=== PATIENT | male | born 1935 | race Caucasian/White ===

== ENCOUNTER 2016-05-26 13:42 | Emergency (ER) | payer MEDICARE ==
[2016-05-27] MEDS ORDERED: TRAMADOL HCL50 MG PO (23:36)
[2016-05-27] MEDS ORDERED: FLOMAX 0.4 MG0.4 MG PO (23:36)
[2016-05-27] MEDS ORDERED: PERCOCET 5-3251 EACH PO (23:36)
[2016-05-27] MEDS ORDERED: DITROPAN 5 MG TA5 MG PO (23:37)
== END 2016-05-26 14:50 | disposition home or self-care (01) ==
LOC: ER1 13:42
DX: R33.9 Retention of urine, unspecified (principal); I10 Essential (primary) hypertension; Z79.82 Long term (current) use of aspirin; Z79.899 Other long term (current) drug therapy
CPT/HCPCS: 99283

== ENCOUNTER 2016-05-27 18:18 | Inpatient (IN) | payer MEDICARE ==
[~2016-05-27] VITALS: Ht 175.3 cm; Wt 84.8 kg
[2016-05-27 19:23] LABS: HEMOGLOBIN 12.2 gm/dl (14.0-17.5); RED BLOOD COUNT 4.18 M/UL (4.20-5.50); WHITE BLOOD COUNT 8.7 K/UL (4.5-11.0)
[2016-05-27] MEDS ORDERED: PERCOCET 5-3251 EACH PO (23:36)
[2016-05-27] MEDS ORDERED: TRAMADOL HCL50 MG PO (23:36)
[2016-05-27] MEDS ORDERED: FLOMAX 0.4 MG0.4 MG PO (23:36)
[2016-05-27] MEDS ORDERED: DITROPAN 5 MG TA5 MG PO (23:37)
[2016-05-28 06:19] LABS: HEMOGLOBIN 10.7 gm/dl (14.0-17.5); WHITE BLOOD COUNT 8.6 K/UL (4.5-11.0)
[2016-05-28 06:21] LABS: RED BLOOD COUNT 3.71 M/UL (4.20-5.50)
[2016-05-28 07:14] LABS: ACINETOBACTER BAUMANNII Not Detected (Negative); CANDIDA ALBICANS Not Detected (Negative); CANDIDA KRUSEI Not Detected (Negative); CANDIDA TROPICALIS Not Detected (Negative); ENTEROCOCCUS Not Detected (Negative); ESCHERICHIA COLI Not Detected (Negative); HAEMOPHILUS INFLUENZAE Not Detected (Negative); KLEBSIELLA OXYTOCA Not Detected (Negative); KLEBSIELLA PNEUMONIAE Not Detected (Negative); KPC-CARBAPENEM-RESISTANCE GENE Not Detected (Negative); PROTEUS Not Detected (Negative); PSEUDOMONAS AERUGINOSA Not Detected (Negative); STAPHYLOCOCCUS Not Detected (Negative); STAPHYLOCOCCUS AUREUS Not Detected (Negative); STREP AGALACTIAE (GROUP B) Not Detected (Negative); STREP PYOGENES (GROUP A) Not Detected (Negative); STREPTOCOCCUS Not Detected (Negative); mecA (METHICILLIN RESIST GENE Not Detected (Negative); vanA/B (VANCOMYCIN RESIST GENE Not Detected (Negative)
[2016-05-28 08:30] LABS: SERRATIA MARCESANS DETECTED (Negative)
[2016-05-30 06:04] LABS: RED BLOOD COUNT 3.82 M/UL (4.20-5.50)
[2016-05-30 06:11] LABS: WHITE BLOOD COUNT 4.9 K/UL (4.5-11.0)
[2016-05-30 06:20] LABS: BUN/CREATININE RATIO 16 (0-10)
[2016-05-30] MEDS ORDERED: NORVASC 5 MG TAB5 MG PO (14:01)
[2016-05-30] MEDS ORDERED: FERROUS SULFAT325 M2 PO (14:02)
[2016-05-30] MEDS ORDERED: LEVAQUIN250 MG PO (14:02)
[2016-05-30] MEDS ORDERED: K-TAB ER20 MEQ PO (14:05)
== END 2016-05-30 15:38 | disposition home health service (06) | DRG 872 ==
LOC: ER1 18:18 → ZEROF 22:05 → MED SURG 4 22:05
PROVIDERS: Emergency Medicine; Student in an Organized Health Care Education/Training Program; ADMIT Internal Medicine
DX: A41.53 Sepsis due to Serratia (principal); N30.00 Acute cystitis without hematuria; N17.9 Acute kidney failure, unspecified; E86.0 Dehydration; D50.9 Iron deficiency anemia, unspecified; I12.9 Hypertensive chronic kidney disease with stage 1 through stage 4 chronic kidney disease, or unspecified chronic kidney disease; N18.3 Chronic kidney disease, stage 3 (moderate); E87.6 Hypokalemia; N40.0 Benign prostatic hyperplasia without lower urinary tract symptoms; Z79.891 Long term (current) use of opiate analgesic; Z79.899 Other long term (current) drug therapy; Z88.2 Allergy status to sulfonamides; Z98.890 Other specified postprocedural states; Z82.49 Family history of ischemic heart disease and other diseases of the circulatory system
CPT/HCPCS: 36415; 71010; 72131; 80048; 80053; 81001; 82270; 82272; 82550; 82553; 82607; 82728; 82746; 83540; 83605; 83735; 83874; 84466; 84484; 85025; 85027; 85045; 87040; 87077; 87086; 87150; 87186; 93005; 96361; 96365; 96375; 99283; 99285; J0696; J1756; J2543; J7030; J7050